=== PATIENT | female | born 1935 | race Caucasian/White ===

== ENCOUNTER → 2017-10-22 | Outpatient (CLI) | payer OTHER ==
[~2017-10-22] MED LIST: CALCITRATE200 MG; CENTRUM SILVER1 EAC4 PO; COLACE100 MG PO; FLECAINIDE ACET50 M1 PO; KEFLEX500 M1 PO; LOPRESSOR25 PO; SIMVASTATIN10 MG PO; VITAMIN D3400 UNIT; ZOCOR20 MG PO
== END ==
LOC: M.RAD 11:42
DX: R06.09 Other forms of dyspnea (principal)

== ENCOUNTER 2018-03-03 18:17 | Observation (INO) | payer OTHER ==
[~2018-03-03] VITALS: Ht 177.8 cm; Wt 68.0 kg
[~2018-03-03 18:17] MED LIST changes: -FLECAINIDE ACET50 M1 PO; -SIMVASTATIN10 MG PO
[2018-03-03 18:21] VITALS: BP 187/79
[2018-03-03] MEDS ORDERED: LOPRESSOR25 PO (18:26)
[2018-03-03] MEDS ORDERED: SIMVASTATIN10 MG PO (18:27)
[2018-03-03 18:46] LABS: ABSOLUTE BASOPHILS 0.1 thou/uL (0.0-0.2); ABSOLUTE EOSINOPHILS 0.2 thou/uL (0.0-0.7); ABSOLUTE LYMPHOCYTES 2.9 thou/uL (0.8-5.3); ABSOLUTE MONOCYTES 0.6 thou/uL (0.0-1.2); ABSOLUTE NEUTROPHILS 5.6 thou/uL (1.6-8.1); BASOPHILS 0.5 %; EOSINOPHILS 2.4 %; HEMATOCRIT 42.7 % (37.0-47.0); HEMOGLOBIN 14.3 gm/dL (12.0-15.0); LYMPHOCYTES 31.2 %; MCHC 33.5 g/dL (28.0-37.0); MCV 95.6 fL (80.0-100.0); MONOCYTES 6.8 %; MPV 9.3 fl. (7.2-11.1); NUCLEATED RBCS 0 /100WBC; PLATELET COUNT* 203 thou/uL (150-400); POLYS 59.1 %; RBC 4.47 mil/uL (4.20-5.00); RDW-CV 12.9 % (10.5-14.5); WBC 9.4 thou/uL (4.0-11.0)
[2018-03-03 18:50] LABS: ANION GAP 6 mmol/L (7-16); BUN 31 mg/dL (7-18); CALCIUM 9.2 mg/dL (8.5-10.1); CHLORIDE 103 mmol/L (98-107); CO2 29 mmol/L (21-32); CREATININE 1.3 mg/dL (0.6-1.3); GLUCOSE 110 mg/dL (70-99); POTASSIUM 3.7 mmol/L (3.5-5.1); SODIUM 138 mmol/L (136-145)
[2018-03-03 18:57] LABS: INR 1.1; PROTIME 10.8 Seconds (9.20-11.50)
[2018-03-03 19:01] LABS: ALBUMIN 3.5 g/dL (3.4-5.0); ALKALINE PHOSPHATASE 90 U/L (46-116); LIPASE 233 U/L (73-393); NT-PRO BRAIN NAT PEPTIDE 2001 pg/mL (<300); SGOT 32 U/L (15-37); SGPT 44 U/L (30-65); TOTAL BILIRUBIN 0.3 mg/dL (<0.1-1.0); TROPONIN-I LEVEL <0.06 ng/mL (<0.06)
[2018-03-03 22:30] VITALS: BP 142/52
[2018-03-03 22:35] VITALS: BP 113/84
--- NOTE | 2018-03-04 03:15 | NUR ---
ASSUMED CARE OF PATIENT FROM ER. PATIENT ABLE TO ANSWER ALL ADMISSION QUESTIONS, DENIES CHEST PAIN AT THIS TIME. EDUCATED ON PAIN MANAGEMENT AND IMPORTANCE OF CALLING THIS RN IF THE PAIN CAME BACK. VERBALIZED UNDERSTANDING. NPO AFTER MIDNIGHT. REMAINS IN BIGEMINY WITH PERIODS OF BRADYCARDIA. ASYMPTOMATIC AT THIS TIME. WILL CONTINUE TO MONITOR.
[2018-03-04 04:00] VITALS: BP 160/60
[2018-03-04 08:18] VITALS: BP 149/55
[2018-03-04 12:00] VITALS: BP 145/61
--- NOTE | 2018-03-04 12:18 | NUR ---
Pt is A&O. Resides at home with her . Active and independent. 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 No hx of HH or SNF. Goal is to return home at dc, no needs anticipated. Pt states that she may be able to dc to home later today, pending a few tests. Following.
--- NOTE | 2018-03-04 12:51 | NUR ---
OFF THE FLOOR FOR PROCEDURES
--- NOTE | 2018-03-04 16:53 | NUR ---
SPOKE WITH ERLIN STRICKLAND-ISELA. WAITING RESUTLS OF STRESS TEST TO SEE IF PATIENT CAN GO HOME OR NOT THIS EVENING. DR WILL AWARE OF D/C IF OK WITH CARDIOLOGY.
--- NOTE | 2018-03-04 16:53 | CARDNUC ---
[place] [address] CARDIAC NUCLEAR IMAGING REPORT Name: SCOTT DANIEL Room: [address] IN [facility]#: [id number] Admission: 03/03/18 Attend Phys: Aristeo Barraza Discharge: Date of : 37 Date of Service: 03/04/18 1652 Report #: [id number] THIS REPORT FOR: //name// APPROVED REPORT Study performed: 03/04/2018 08:50:00 Indication: Chest pain, , Abnormal EKG, Bigeminy Patient Location: In-Patient Room #: [facility] Stress Tech: Diana Osborne Stress Nurse: Marzena Daugherty RN Ht: 5 ft 10 in Wt: 150 lbs BSA: 1.85 m2 BMI: 21.52 Medical History Medical History: Angina, Arrhythmia, Bigeminy, , Fatigue, Former Smoker, HTN, Hyperlipidemia, ICD, , Weakness, Bradycardia Medications: Metoprolol, Simvastatin Allergies: Cephalexin Cardiac Risk Factors: Age, FHX of CAD, HTN, Hyperlipidemia, Past Smoker Previous Cardiac Procedures: ICD Pretest Chest Pain Characteristics: No chest pain Exercise History: Indeterminate Physical Disabilities: Legs, generalized weakness Meds Held (24 hrs): Metoprolol Resting Data Rest SPECT myocardial perfusion imaging was performed in supine position 30 minutes following the intravenous injection of 11.4 mCi of Tc-99m Sestamibi. Time of rest injection: 13:00 The images were gated to evaluate regional wall motion and calculate left ventricular ejection fraction. Administration Route: IV Administration Site: Left AC Pharmacologic Stress Pharmacologic stress test was performed by injecting Regadenoson 0.4 mg IV push over 10-15 seconds immediately followed by the intravenous injection of 33.8 mCi of Tc-99m Sestamibi. Time of stress injection: 14:40 [place] [address] CARDIAC NUCLEAR IMAGING REPORT Name: SCOTT DANIEL Room: [address] IN [facility].#: [id number] Admission: 03/03/18 Attend Phys: Aristeo Barraza Discharge: Date of : 37 Date of Service: 03/04/18 1652 Report #: [id number] Administration Route: IV Administration Site: Left AC Heart Rate at time of stress injection: 124 bpm. Gated Stress SPECT was performed 40 minutes after stress injection. The images were gated to evaluate regional wall motion and calculate left ventricular ejection fraction. Prone imaging was performed. Stress Test Details Stress Test: Pharmacologic stress testing performed using 0.4 mg of regadenoson per 5 mL given IV over 10 seconds. Reason for pharmacologic stress test: physical limitation, general weakness, Leg weakness/pain. 60 mg caffeine given for dyspnea, nausea. HR Max Heart Rate (APMHR): 139 bpm Resting HR: 90 bpm Target HR (85% APMHR): 118 bpm Max HR Achieved: 124 bpm % of APMHR: 89 Recovery HR: 88 bpm BP Resting BP: 137/96 mmHg Recovery BP: 164/84 mmHg ECG Resting ECG: Sinus Rhythm Stress ECG: Sinus Rhythm ST Change: None Arrhythmia: VPC's Recovery ECG: Sinus Rhythm Recovery ST Change: None Recovery Arrhythmia: VPC's Clinical Reason for Termination: Completed protocol Stress Symptoms: Abdominal discomfort, Dyspnea, Dizziness, Lightheaded, Nausea, Fatigue, Weakness, Anxiety, Chest Pressure, Head pressure. Exercise duration: 0 min 0 sec Exercise capacity: 1.00 METs The patient tolerated Lexiscan infusion without significant symptoms. Nurse Comments Patient unable to walk on treadmill r/t [place] [address] CARDIAC NUCLEAR IMAGING REPORT Name: SCOTT DANIEL Room: [address]#: [id number] Admission: 03/03/18 Attend Phys: Aristeo Barraza Discharge: Date of : 37 Date of Service: 03/04/18 1652 Report #: [id number] pain. Patient exhibit several side effects and became very anxious and scared during test while sitting on bed and swinging legs. IV Caffeine was administered as patient was not able to drink a caffeinated beverage initially. Patient responded well to IV caffeine and side effects faded and patient reported feeling much better but stated she was still scared. Patient EKG exhibited bigeminy, PVC's and some ST changes. Patient was stable when escorted with staff via wheelchair to Nuclear Medicine for images. No further complaints. Stress ECG Conclusion The baseline 12-lead EKG shows sinus rhythm with frequent unifocal premature ventricular contractions in a pattern of bigeminy. EKGs obtained during and post Lexiscan stress show sinus rhythm with continued frequent unifocal premature ventricular contractions. Study Quality Study: Good Artifact: No artifact Perfusion Normal left ventricular perfusion. Wall Motion The study could not be gated due to frequent and significant ectopy. Nuclear Conclusion ECG Findings: negative for ischemia Clinical Findings: negative for ischemia Nuclear Findings: negative for ischemia Exercise Capacity: not assessed Myocardial perfusion images show no defect to suggest infarct or ischemia. Gated images were not technically adequate for assessment of left ventricular systolic function. Recommend echocardiographic follow-up. This is not a high risk study. <Conclusion> The baseline 12-lead EKG shows sinus rhythm with frequent unifocal premature ventricular contractions in a pattern [place] [address] CARDIAC NUCLEAR IMAGING REPORT Name: SCOTT DANIEL Room: [address] IN ..#: [id number] Admission: 03/03/18 Attend Phys: Aristeo Barraza Discharge: Date of : 37 Date of Service: 03/04/18 1652 Report #: [id number] obtained during and post Lexiscan stress show sinus rhythm with continued frequent unifocal premature ventricular contractions. <ELECTRONICALLY SIGNED> By: Carlos Tsang MD, FACC 03/04/181651 51 51 Carlos Tsang MD, FACC /INF
[2018-03-04 17:02] VITALS: BP 165/65
[2018-03-04 17:07] VITALS: BP 165/65
[2018-03-04] MEDS ORDERED: FLECAINIDE ACET50 M1 PO (17:07)
--- NOTE | 2018-03-04 17:14 | 2DMMODE ---
[place] [address] 2 D/M-MODE ECHOCARDIOGRAM Name: SCOTT DANIEL Room: [address] [place]#: [id number] Admission: 03/03/18 Attend Phys: Aristeo Barraza Discharge: Date of : 37 Date of Service: 03/04/18 1714 Report #: [id number] THIS REPORT FOR: //name// APPROVED REPORT Study performed: 03/04/2018 16:17:36 EXAM: Comprehensive 2D, Doppler, and color-flow Echocardiogram Patient Location: In-Patient Room #: [facility] Status: routine BSA: 1.85 HR: 42 bpm BP: 160/60 mmHg Rhythm: NSR Other Information Study Quality: Good Indications Chest Pain 2D Dimensions IVSd: 11.04 (7-11mm) LVOT Diam: 20.03 (18-24mm) LVDd: 48.72 mm PWd: 11.42 (7-11mm) Ascending Ao: 33.24 (22-36mm) LVDs: 35.26 (25-40mm) Aortic Root: 31.63 mm Volumes Left Atrial Volume (Systole) LA ESV Index: 44.30 mL/m2 Aortic Valve AoV Peak Anoop.: 1.28 m/s AO Peak Gr.: 6.57 mmHg LVOT Max P.52 mmHg AO Mean Gr.: 3.64 mmHg LVOT Mean P.78 mmHg LVOT Max V: 0.62 m/s AO V2 VTI: 25.96 cm LVOT Mean V: 0.41 m/s DERRICK (VTI): 1.83 cm2 LVOT V1 VTI: 15.10 cm AI Dickinson: 2.29 m/s2 AI PHT: 595.37 ms Mitral Valve E/A Ratio: 0.80 [place] [address] 2 D/M-MODE ECHOCARDIOGRAM Name: SCOTT DANIEL Room: [address] [place]#: [id number] Admission: 03/03/18 Attend Phys: Aristeo Barraza Discharge: Date of : 37 Date of Service: 03/04/18 1714 Report #: [id number] MV Decel. Time: 239.54 ms MV E Max Anoop.: 0.94 m/s MV PHT: 69.47 ms MVA (PHT): 3.17 cm2 TDI E/Lateral E': 15.67 E/Medial E': 13.43 Medial E' Anoop.: 0.07 m/s Lateral E' Anoop.: 0.06 m/s Pulmonary Valve PV Peak Anoop.: 0.96 m/s PV Peak Gr.: 3.70 mmHg Tricuspid Valve RAP Estimate: 5.00 mmHg TR Peak Gr.: 26.38 mmHg RVSP: 31.00 mmHg PA Pressure: 31.00 mmHg Left Ventricle The left ventricle is normal size. There is mild global hypokinesis noted. There is normal left ventricular wall thickness. Left ventricular systolic function is mildly decreased. LVEF is 45-50%. Grade I - abnormal relaxation pattern. Right Ventricle The right ventricle is normal size. The right ventricular systolic function is normal. Device lead is present in the right ventricle. Atria Left atrium is moderately dilated. The right atrium size is normal. Aortic Valve Mild aortic valve sclerosis. Mild aortic regurgitation. Mild aortic stenosis. Mitral Valve The mitral valve is normal in structure. Trace mitral regurgitation. No evidence of mitral valve stenosis. Tricuspid Valve The tricuspid valve is normal in structure. Mild tricuspid regurgitation. Mild pulmonary hypertension. Pulmonic Valve The pulmonary valve is normal in [place] [address] 2 D/M-MODE ECHOCARDIOGRAM Name: SCOTT DANIEL [address] [id number] Admission: 03/03/18 Attend Phys: Aristeo Barraza Discharge: Date of : 37 Date of Service: 03/04/18 1714 Report #: [id number] regurgitation. Great Vessels The aortic root is normal in size. IVC is normal in size and collapses >50% with inspiration. Pericardium There is no pericardial effusion. <Conclusion> The left ventricle is normal size. There is normal left ventricular wall thickness. Left ventricular systolic function is mildly decreased. LVEF is 45-50%. Grade I - abnormal relaxation pattern. There is mild global hypokinesis noted. Left atrium is moderately dilated. Mild aortic valve sclerosis. Mild aortic regurgitation. Mild tricuspid regurgitation. Mild pulmonary hypertension. IVC is normal in size and collapses >50% with inspiration. Device lead is present in the right ventricle. <ELECTRONICALLY SIGNED> By: Carlos Tsang MD, FACC 03/04/181713 13 13 Carlos Tsang MD, FACC /INF
--- NOTE | 2018-03-04 17:23 | EKG ---
[place] [address] ELECTROCARDIOGRAM REPORT Name: SCOTT DANIEL Room: [address] M.R.#: [id number] Admission: 03/03/18 Attend Phys: Brinda Collins Discharge: Date of : 37 Report #: [id number] THIS REPORT FOR: //name// [facility] ED Test Date: 2018-03-03 Test Time: 18:21:37 Pat Name: SCOTT DANIEL Department: Room: [facility] Gender: F Intr[employer]et Developer: Sophia GIRON : 1935 Requested By: Cem Chambers Order Number: [id number] MD: Carlos Tsang Measurements Intervals [place] Rate: 101 P: 86 MI: 156 QRS: 67 QRSD: 87 T: -57 QT: 365 QTc: 474 Interpretive Statements Sinus tachycardia Ventricular bigeminy Consider left ventricular hypertrophy Nonspecific T abnormalities, inferior leads No previous ECG available for comparison Electronically Signed On 03-04-2018 17:23:18 CDT by Carlos Tsang [email or web address] <ELECTRONICALLY SIGNED> By: Carlos Tsang MD, FACC 03/04/18 1723 182 182 Carlos Tsang MD, [facility] /EPI
--- NOTE | 2018-03-04 17:29 | NUR ---
[employer]AL[employer] TECHNICIAN CALLED BACK, CHANGED MEDICATIONS, D/C FLECANIDE, CONTINUE METOPROLOL 25MG DOSE AT HOME BID UNTIL FOLLOW UP WITH DR VELAZQUEZ. DISCHARGE PACKET GIVEN, ALL QUESTIONS ANSWERED. PATIENT GETTING DRESSED AT THIS TIME AND THEN WILL TAKE DOWN TO CAR BY WHEELCHAIR.
--- NOTE | 2018-03-04 17:56 | NUR ---
patient d/c to home with . all belongings taken with patient.
== END 2018-03-04 17:45 | disposition home or self-care (01) ==
LOC: M.ERS 18:17 → M.TBA-ER 21:06 → M.2W 21:06
PROVIDERS: Emergency Medicine; ADMIT Internal Medicine
DX: R07.89 Other chest pain (principal); I49.3 Ventricular premature depolarization; H35.30 Unspecified macular degeneration; E78.00 Pure hypercholesterolemia, unspecified; R06.00 Dyspnea, unspecified; I49.5 Sick sinus syndrome; R53.83 Other fatigue; R00.8 Other abnormalities of heart beat; Z95.0 Presence of cardiac pacemaker; Z90.49 Acquired absence of other specified parts of digestive tract; Z88.1 Allergy status to other antibiotic agents; Z79.899 Other long term (current) drug therapy; Z98.890 Other specified postprocedural states; Z72.89 Other problems related to lifestyle; Z23 Encounter for immunization

== ENCOUNTER → 2018-05-27 | Outpatient (CLI) | payer OTHER ==
[~2018-05-27] MED LIST changes: +FISH OIL 1,001000 M2 PO; +FLECAINIDE ACET50 M1 PO; +PRESERVISION A1 EAC2 PO; +SIMVASTATIN10 MG PO; +SUPER B COMPLE1 EAC2 PO
--- NOTE | 2018-05-27 09:54 | 2DMMODE ---
[place] [address] 2 D/M-MODE ECHOCARDIOGRAM Name: SCOTT DANIEL Room: [facility]#: [id number] Admission: 05/27/18 Attend Phys: Hawk Gradne, Discharge: Date of : 37 Date of Service: 05/27/18 0953 Report #: [id number] THIS REPORT FOR: //name// APPROVED REPORT Study performed: 05/27/2018 08:38:05 EXAM: Comprehensive 2D, Doppler, and color-flow Echocardiogram Patient Location: Out-Patient Status: routine BSA: 1.82 HR: 86 bpm BP: 158/58 mmHg Other Information Study Quality: Good Indications Atrial Fibrillation 2D Dimensions IVSd: 12.43 (7-11mm) LVOT Diam: 20.63 (18-24mm) LVDd: 46.10 mm PWd: 10.22 (7-11mm) Ascending Ao: 30.65 (22-36mm) LVDs: 33.06 (25-40mm) Aortic Root: 23.24 mm Volumes Left Atrial Volume (Systole) LA ESV Index: 25.40 mL/m2 Aortic Valve AoV Peak Anoop.: 1.11 m/s AO Peak Gr.: 4.95 mmHg LVOT Max P.21 mmHg AO Mean Gr.: 2.83 mmHg LVOT Mean P.08 mmHg LVOT Max V: 0.74 m/s AO V2 VTI: 19.71 cm LVOT Mean V: 0.47 m/s DERRICK (VTI): 2.43 cm2 LVOT V1 VTI: 14.33 cm AI Falls: 4.35 m/s2 AI PHT: 332.71 ms Mitral Valve E/A Ratio: 0.67 MV Decel. Time: 200.98 [place] [address] 2 D/M-MODE ECHOCARDIOGRAM Name: SCOTT DANIEL Room: [facility]#: [id number] Admission: 05/27/18 Attend Phys: Hawk Grande, Discharge: Date of : 37 Date of Service: 05/27/18 0953 Report #: [id number] MV E Max Anoop.: 0.69 m/s MV PHT: 58.28 ms MVA (PHT): 3.77 cm2 TDI E/Lateral E': 7.67 E/Medial E': 6.27 Medial E' Anoop.: 0.11 m/s Lateral E' Anoop.: 0.09 m/s Pulmonary Valve PV Peak Anoop.: 0.90 m/s PV Peak Gr.: 3.23 mmHg Tricuspid Valve RAP Estimate: 5.00 mmHg TR Peak Gr.: 27.36 mmHg RVSP: 32.36 mmHg PA Pressure: 32.36 mmHg Left Ventricle The left ventricle is normal size. There is global hypokinesis of the left ventricle. There is normal left ventricular wall thickness. Left ventricular systolic function is moderately decreased. LVEF is 30-35%. The left ventricular diastolic function is normal. Right Ventricle The right ventricle is normal size. The right ventricular systolic function is normal. Pacemaker lead is present in the right ventricle. Atria The left atrium size is normal. Pacemaker lead is present in the right atrium. Aortic Valve Aortic valve is mildly calcified. Moderate aortic regurgitation. There is no aortic valvular stenosis. Mitral Valve The mitral valve is normal in structure. Mild mitral regurgitation. No evidence of mitral valve stenosis. Tricuspid Valve The tricuspid valve is normal in structure. Mild tricuspid regurgitation. Pulmonic Valve The pulmonary valve is normal in structure. [place] [address] 2 D/M-MODE ECHOCARDIOGRAM Name: SCOTT DANIEL Room: [facility]#: [id number] Admission: 05/27/18 Attend Phys: Hawk Grande, Discharge: Date of : 37 Date of Service: 05/27/18 0953 Report #: [id number] Great Vessels The aortic root is normal in size. IVC is not well visualized. Pericardium There is no pericardial effusion. <Conclusion> LVEF is 30-35%. Pacemaker lead is present in the right ventricle. Moderate aortic regurgitation. Mild mitral regurgitation. <ELECTRONICALLY SIGNED> By: Jorden Carrion MD, [facility] 05/27/1853 2 2 Jorden Carrion MD, FAC /INF
== END ==
LOC: M.CRD 08:00
DX: Z01.812 Encounter for preprocedural laboratory examination (principal); I34.0 Nonrheumatic mitral (valve) insufficiency; I35.1 Nonrheumatic aortic (valve) insufficiency; I48.91 Unspecified atrial fibrillation; I49.3 Ventricular premature depolarization

== ENCOUNTER → 2020-06-09 | Outpatient (CLI) | payer OTHER ==
[~2020-06-09] MED LIST changes: +METOPROLOL SUCC50 MG PO; +PACERONE 200 M200 M1 PO; +PRADAXA150 MG PO
[2020-06-09 08:58] LABS: ALBUMIN 3.7 g/dL (3.4-5.0); DIRECT BILIRUBIN 0.2 mg/dL (<0.1-0.3); TOTAL BILIRUBIN 0.8 mg/dL (<0.1-1.0); TOTAL PROTEIN 6.9 g/dL (6.4-8.2)
== END ==
LOC: M.LAB 08:23
PROVIDERS: ATTEND Internal Medicine Cardiovascular Disease
DX: I48.91 Unspecified atrial fibrillation (principal); I42.8 Other cardiomyopathies; Z79.899 Other long term (current) drug therapy